=== PATIENT | female | born 2000 | race Caucasian/White ===

== ENCOUNTER → 2021-10-11 | Outpatient (CLI) | payer OTHER ==
[~2021-10-11] MED LIST: DOCUSATE SODIU100 MG PO; HYDROCODON-ACE1 EAC4 PO; IBUPROFEN600 MG PO
[2021-10-11 14:06] LABS: HEMOGLOBIN 9.7 gm/dl (12.3-15.3); RED BLOOD COUNT 4.32 M/UL (4.00-5.10); WHITE BLOOD COUNT 8.7 K/UL (4.5-11.0)
== END ==
LOC: GENOP 13:17
PROVIDERS: Obstetrics & Gynecology
DX: Z01.812 Encounter for preprocedural laboratory examination (principal)
CPT/HCPCS: 36415; 81001; 85025

== ENCOUNTER 2021-10-12 05:32 | Inpatient (IN) | payer OTHER ==
[~2021-10-12] VITALS: Ht 157.5 cm; Wt 81.6 kg
[2021-10-12] MEDS ORDERED: HYDROCODON-ACE1 EAC4 PO (09:26)
[2021-10-12] MEDS ORDERED: IBUPROFEN600 MG PO (09:26)
[2021-10-12] MEDS ORDERED: DOCUSATE SODIU100 MG PO (09:26)
[2021-10-13 04:08] LABS: HEMOGLOBIN 8.2 gm/dl (12.3-15.3)
== END 2021-10-14 15:03 | disposition home or self-care (01) | DRG 788 ==
LOC: OB 05:32
PROVIDERS: ADMIT Obstetrics & Gynecology
PROC: 3E0234Z Introduction of Serum, Toxoid and Vaccine into Muscle, Percutaneous Approach (ICD-10-PCS; 2021-10-12)
PROC: 10D00Z1 Extraction of Products of Conception, Low, Open Approach (ICD-10-PCS; principal; 2021-10-12 07:30)
DX: O24.410 Gestational diabetes mellitus in pregnancy, diet controlled (principal); O34.211 Maternal care for low transverse scar from previous cesarean delivery; Z37.0 Single live birth; Z3A.37 37 weeks gestation of pregnancy; Z79.84 Long term (current) use of oral hypoglycemic drugs; Z28.310 Unvaccinated for COVID-19; Z81.8 Family history of other mental and behavioral disorders; Z83.3 Family history of diabetes mellitus; Z82.49 Family history of ischemic heart disease and other diseases of the circulatory system; Z23 Encounter for immunization
CPT/HCPCS: 36415; 82800; 82962; 85014; 85018; 90715; C9113; J0690; J1170; J1200; J2370; J2405; J2590